=== PATIENT | male | born 1970 ===

== ENCOUNTER 2017-02-27 09:06 | Emergency (ER) | payer SELFPAY ==
[2017-02-27 09:06] VITALS: BMI 32.5
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
[2017-02-27 10:28] VITALS: BP 126/71; PULSE 75; RESP 20; TEMP 98; O2SAT 100
== END 2017-02-27 10:29 | disposition home or self-care (01) ==
LOC: ED 09:06
DX: M25.561 Pain in right knee (principal)
CPT/HCPCS: 96372; 99283; J1885